=== PATIENT | female | born 1970 | race Two or more races ===

== ENCOUNTER 2023-06-19 15:17 | Emergency (ER) | payer MEDICAID ==
[~2023-06-19] VITALS: Ht 160 cm; Wt 66.5 kg
[2023-06-19 16:13] LABS: Basophils # (auto) 0 10 ^3/uL (0-0.2); Basophils % (auto) 0.3 % (0.0-2.0); Eosinophils # (auto) 0 10 ^3/uL (0-0.8); Eosinophils % (auto) 0.1 % (0.0-7.0); Hematocrit 40.6 % (36.0-46.0); Hemoglobin 13.5 g/dL (12.2-16.2); Lymphocytes # (auto) 1.9 10 ^3/uL (0.4-5.4); Lymphocytes % (auto) 18.2 % (10.0-50.0); Mean Corpuscular Hemoglobin 31.7 pg (28.0-32.0); Mean Corpuscular Hgb Conc. 33.3 g/dL (32.0-36.0); Mean Corpuscular Volume 95.1 fL (80.0-100.0); Monocytes # (auto) 0.6 10 ^3/uL (0-1.3); Monocytes % (auto) 5.7 % (0.0-12.0); Neutrophils % (auto) 75.7 % (37.0-80.0); Red Blood Cells 4.27 10^6/uL (4.0-5.20); Red Cell Distribution Width 13.2 % (11.8-14.3); White Blood Cell 10.5 10^3/uL (4.4-10.8)
[2023-06-19 16:39] LABS: Alanine Aminotransferase 23 U/L (7-40); Albumin 4.9 g/dL (3.2-4.8); Alkaline Phosphatase 135 U/L (46-116); Anion Gap 7 (5-15); Aspartate Aminotransferase 22 U/L (13-40); BUN/Creatinine Ratio 17.1 (10.0-20.0); Bilirubin, Total 0.6 mg/dL (0.2-1.0); Blood Urea Nitrogen 13 mg/dL (9-23); Calcium 10.5 mg/dL (8.7-10.4); Carbon Dioxide 25 mmol/L (20-30); Chloride 104 mmol/L (98-107); Glucose 111 mg/dL (74-106); Sodium 136 mmol/L (136-145)
[2023-06-19 16:40] LABS: Total Protein 7.4 g/dL (5.7-8.2)
[2023-06-19 16:46] LABS: Urine Bacteria NONE SEEN /hpf (None Seen); Urine Blood Negative /uL (Negative); Urine Clarity Clear (Clear); Urine Color Yellow (Yellow); Urine Protein, UAD Negative (Negative); Urine Specific Gravity 1.019 (1.001-1.035); Urine Urobilinogen Normal (Negative); Urine WBC 2 /hpf (0 - 5); Urine pH 5.5 (5.0-8.0)
[2023-06-19] MEDS ORDERED: HYDROcodone-ACET 5/325MG TAB PO ONE (21:30)
[2023-06-19] MEDS ORDERED: ONDANSETRON ODT 4 MG TAB PO ONE (21:30)
[2023-06-19] MEDS ORDERED: IBUP1TAB5 PO (21:40)
[2023-06-19] MEDS ORDERED: ZOFR4T PO (21:40)
[2023-06-19 21:57] VITALS: BP 119/56; PULSE 71; RESP 14; TEMP 98.3; O2SAT 97
== END 2023-06-19 21:57 | disposition home or self-care (01) ==
LOC: ER 15:17
DX: N93.9 Abnormal uterine and vaginal bleeding, unspecified (principal); R10.2 Pelvic and perineal pain; R10.31 Right lower quadrant pain; E78.5 Hyperlipidemia, unspecified
CPT/HCPCS: 36415; 74176; 76830; 76856; 80053; 81001; 85025

== ENCOUNTER 2023-12-24 12:10 | Emergency (ER) | payer MEDICAID ==
[~2023-12-24] VITALS: Ht 160 cm; Wt 64.2 kg
[~2023-12-24 12:10] MED LIST: IBUP1TAB5 PO; ZOFR4T PO
[2023-12-24 12:29] VITALS: BP 126/66; PULSE 93; RESP 18; TEMP 98; O2SAT 94
[2023-12-24] MEDS ORDERED: PRED20TA2 PO (13:58)
[2023-12-24] MEDS ORDERED: DOXY1CAP57 PO (13:58)
[2023-12-24] MEDS ORDERED: ALBUAER3 IN (13:58)
== END 2023-12-24 13:58 | disposition home or self-care (01) ==
LOC: ER 12:10
DX: J01.90 Acute sinusitis, unspecified (principal); H66.93 Otitis media, unspecified, bilateral; J20.9 Acute bronchitis, unspecified; E78.5 Hyperlipidemia, unspecified; Z79.899 Other long term (current) drug therapy

== ENCOUNTER 2024-03-16 11:03 | Emergency (ER) | payer MEDICAID ==
[~2024-03-16] VITALS: Ht 157.5 cm; Wt 68.5 kg
[~2024-03-16 11:03] MED LIST changes: +ALBUAER3 IN; +DOXY1CAP57 PO; +PRED20TA2 PO
[2024-03-16] MEDS: KETOROLAC TROMETH 60MG/2ML VIAL IM ONE (12:23)
[2024-03-16] MEDS ORDERED: IBUP-1454 PO (12:33)
[2024-03-16] MEDS ORDERED: PRED20TA2 PO (12:33)
[2024-03-16] MEDS ORDERED: AMOX875T4 PO (12:33)
[2024-03-16 12:34] VITALS: BP 126/67; PULSE 68; RESP 16; TEMP 98.4; O2SAT 100
== END 2024-03-16 12:41 | disposition home or self-care (01) ==
LOC: ER 11:03
DX: S39.012A Strain of muscle, fascia and tendon of lower back, initial encounter (principal); J01.00 Acute maxillary sinusitis, unspecified; H66.93 Otitis media, unspecified, bilateral; E78.5 Hyperlipidemia, unspecified; Z79.899 Other long term (current) drug therapy; X58.XXXA Exposure to other specified factors, initial encounter; Y93.89 Activity, other specified; Y92.89 Other specified places as the place of occurrence of the external cause; Y99.8 Other external cause status
CPT/HCPCS: 96372; 99283; J1885

== ENCOUNTER 2024-12-29 13:19 | Emergency (ER) | payer MEDICAID ==
[~2024-12-29] VITALS: Ht 157.5 cm; Wt 68.1 kg
[~2024-12-29 13:19] MED LIST changes: +AMOX875T4 PO; +IBUP-1454 PO
[2024-12-29 13:42] VITALS: TEMP 98.6
[2024-12-29 14:18] VITALS: BP 128/70; PULSE 63; RESP 16; O2SAT 98
[2024-12-29 14:19] LABS: Urine Bacteria FEW /hpf (None Seen); Urine Blood Negative /uL (Negative); Urine Clarity Hazy (Clear); Urine Color Yellow (Yellow); Urine Protein, UAD Negative (Negative); Urine Specific Gravity 1.022 (1.001-1.035); Urine Squamous Epithelial Cell MOD /hpf (<5); Urine Urobilinogen Normal (Negative); Urine WBC 1 /HPF (0-5)
[2024-12-29 14:22] LABS: Basophils # (auto) 0 10 ^3/uL (0-0.2); Basophils % (auto) 0.6 % (0.0-2.0); Eosinophils # (auto) 0.1 10 ^3/uL (0-0.8); Eosinophils % (auto) 0.8 % (0.0-7.0); Hematocrit 43.2 % (36.0-46.0); Lymphocytes # (auto) 2.1 10 ^3/uL (0.4-5.4); Lymphocytes % (auto) 24.8 % (10.0-50.0); Mean Corpuscular Hemoglobin 32.9 pg (28.0-32.0); Mean Corpuscular Hgb Conc. 34.8 g/dL (32.0-36.0); Mean Corpuscular Volume 94.6 fL (80.0-100.0); Monocytes # (auto) 0.6 10 ^3/uL (0-1.3); Neutrophils # (auto) 5.6 10 ^3/uL (1.6-8.6); Neutrophils % (auto) 66.8 % (37.0-80.0); Platelet Count (auto) 244 10^3/uL (140-450); Red Blood Cells 4.57 10^6/uL (4.0-5.20); Red Cell Distribution Width 12.9 % (11.8-14.3); White Blood Cell 8.3 10^3/uL (4.4-10.8)
[2024-12-29] MEDS: DONNATAL 5ml ORAL Elix (BELLADONNA ALK-PHENOBARB) PO ONE (14:25)
[2024-12-29] MEDS: LIDOCAINE VISCOUS 2% 15ML UD PO ONE (14:25)
[2024-12-29] MEDS: ONDANSETRON ODT 4 MG TAB PO ONE (14:25)
[2024-12-29] MEDS: MAALOX PLUS or MAALOX 30 ML PO ONE (14:25)
--- NOTE | 2024-12-29 14:25 | ED.PDOC ---
GI ASSESSMENT HPI Comments 54-year-old female presents here with abdominal pain x1 day. She points to the epigastric region as the area of pain and states the pain goes to her back. She states it feels like a burning pain. No history of similar pain in the past. She reports positive vomiting. No diarrhea. Denies any recent cough cold runny nose fever or chills. Patient has not taken any medication for this today. No history of similar type of pain in the past. Chief Complaint: Abdominal Pain Time Seen by MD: 14:00 Primary Care Provider: AMINAH Martin Notes: Medications, Allergies Allergies: Coded Allergies: NO KNOWN ALLERGIES (Unverified , 09/06/14) Home Meds Active Scripts Ibuprofen (Ibuprofen) 600 Mg Tab, 1 TAB PO TID, #30 TAB Prov:EBER SELLERS 03/16/24 Prednisone (Prednisone) 20 Mg Tab, 60 MG PO DAILY, #15 TAB Prov:EBER SELLERS 03/16/24 Amoxicillin & Pot Clavulanate (Amoxicillin/Potassium Cla) 875 Mg Tab, 1 TAB PO BID, #20 TAB Prov:EBER SELLERS 03/16/24 Prednisone (Prednisone) 20 Mg Tab, 60 MG PO DAILY for 5 Days, #15 TAB Prov:KOFFI GAVIRIA 12/24/23 Albuterol Sulfate (VENTOLIN MDI) 90 Mcg Ih, 90 MCG IN Q4HPRN PRN, #1 INH Prov:KOFFI GAVIRIA 12/24/23 Doxycycline Monohydrate (Doxycycline Monohydrate) 100 Mg Cap, 1 CAP PO BID for 7 Days, #14 CAP Prov:KOFFI GAVIRIA 12/24/23 Ondansetron Odt 4MG Tab (ZOFRAN PO) 4 Mg Tb, 1 TAB PO Q8HR, #10 TAB ODT TAB-DISSOLVE IN MOUTH, THEN SWALLOW as needed for nausea vomiting Prov:AARON TORRES Q FIELD MARKETER 06/19/23 Ibuprofen Micronized (Ibuprofen) 600 Mg Tab, 1 TAB PO Q8HR, #20 TAB as needed for pain Prov:LEVI TORRESA Q FIELD MARKETER 06/19/23 Mode of Arrival: Ambulatory Timing: Days Duration: Since onset Prehospital treatment: None Quality: Sharp Severity: Moderate Recent: None Recent Hx of: None Pain Location: Epigastric Associated sign and symptoms: Nausea, Vomiting, Abdominal Pain Past Medical History PAST MEDICAL HISTORY: High Lipids Surgical History: Denies all surgeries GRANITE WORKER History: No Pertinent GRANITE WORKER History Family History Family History: Reviewed,noncontributory to illness Social History Smoker: Non-Smoker Alcohol: Denies ETOH Use Drugs: Denies Drug Use Lives In: Home Constitutional: denies: chills, diaphoresis, fatigue, fever, malaise, sweats, weakness, others EENTM: denies: blurred vision, double vision, ear bleeding, ear discharge, ear drainage, ear pain, ear ringing, eye pain, eye redness, hearing loss, mouth pain, mouth swelling, nasal discharge, nose bleeding, nose congestion, nose pain, photophobia, tearing, throat pain, throat swelling, voice changes, others Respiratory: denies: cough, hemoptysis, orthopnea, SOB at rest, shortness of breath, SOB with excertion, stridor, wheezing, others Cardiovascular: denies: chest pain, dizzy spells, diaphoresis, Dyspnea on exertion, edema, irregular heart beat, left arm pain, lightheadedness, palpitations, PND, syncope, others Gastrointestinal: reports: abdominal pain, nausea, vomiting; denies: abdomen distended, blood streaked bowels, constipated, diarrhea, dysphagia, difficulty swallowing, hematemesis, melena, poor appetite, poor fluid intake, rectal bleeding, rectal pain, others Genitourinary: denies: abnormal vagina bleeding, burning, dyspareunia, dysuria, flank pain, frequency, hematuria, incontinence, pain, , vagina discharge, urgency, others Neurological: denies: dizziness, fainting, headache, left sided numbness, left sided weakness, numbness, paresthesia, pre-existing deficit, right sided numbness, right sided weakness, seizure, speech problems, tingling, tremors, weakness, others Musculoskeletal: denies: back pain, gout, joint pain, joint swelling, muscle pain, muscle stiffness, neck pain, others Integumetry: denies: bruises, change in color, change in hair/nails, dryness, laceration, lesions, lumps, rash, wounds, others Allergic/Immunocompromised: denies: Difficulty Healing, Frequent Infections, Hives, Itching, others Hematologic/Lymphatic: denies: anemia, blood clots, easy bleeding, easy bruising, swollen glands, others Endocrine: denies: excessive hunger, excessive sweating, excessive thirst, excessive urination, flushing, intolerance to cold, intolerance to heat, unexplained weight gain, unexplained weight loss, others Psychiatric: denies: anxiety, bipolar disorder, depression, hopeless, panic disorder, schizophrenia, sleepless, suicidal, others All Other Systems: Reviewed and Negative Physical Exam General Appearance: No Apparent Distress, Normal HEENT: Normal ENT Inspection, Pharynx Normal, TMs Normal Neck: Full Range of Motion, Non-Tender, Normal, Normal Inspection Respiratory: Chest Non-Tender, Lungs Clear, No Accessory Muscle Use, No Respiratory Distress, Normal Breath Sounds Cardiovascular: No Edema, No JVD, No Murmur, No Gallop, Normal Peripheral Pulses, Regular Rate/Rhythm Breast Exam: Deferred Gastrointestinal: Epigastric (tenderness), No Organomegaly, No Pulsatile Mass, Normal Bowel Sounds, Tenderness (epigastric) Genitalia: Deferred Pelvic: Deferred Rectal: Deferred Extremities: No calf tenderness, Normal capillary refill, Normal inspection, Normal range of motion, Non-tender, No pedal edema Musculoskeletal : Apperance: Normal Neurologic: Alert, medical receptionist medical assistant II-XII nml as Tested, No Motor Deficits, Normal Affect, Normal Mood, No Sensory Deficits Cerebellar Function: Normal Reflexes: Normal Skin: Dry, Normal Color, Warm Lymphatic: No Adenopathy Was a procedure done? Was a procedure done?: No GI differential Dx Differential Diagnosis: Bowel Obstruction, Cholangitis, Cholecystitis, Constipation, Esophagitis, Gastritis/PUD, Gastroenteritis, UTI, Dehydration, Viral X-Ray, Labs, Meds, VS Vital Signs Date Time Temp Pulse Resp B/P (MAP) Pulse Ox O2 Delivery O2 Flow Rate FiO2 12/29/24 14:18 63 16 128/70 (89) 98 12/29/24 14:18 63 16 98 Room Air* 0 21 12/29/24 13:42 Room Air 0 12/29/24 13:42 98.6 64 16 128/69 (88) 98 98.6 Lab Test 12/29/24 14:14 12/29/24 13:30 Range/Units White Blood Count 8.3 4.4-10.8 10^3/uL Red Blood Count 4.57 4.0-5.20 10^6/uL Hemoglobin 15.0 12.2-16.2 g/dL Hematocrit 43.2 36.0-46.0 % Mean Corpuscular Volume 94.6 80.0-100.0 fL Mean Corpuscular Hemoglobin 32.9 H 28.0-32.0 pg Mean Corpuscular Hemoglobin Concent 34.8 32.0-36.0 g/dL Red Cell Distribution Width 12.9 11.8-14.3 % Platelet Count 244 140-450 10^3/uL Mean Platelet Volume 7.4 6.9-10.8 fL Neutrophils (%) (Auto) 66.8 37.0-80.0 % Lymphocytes (%) (Auto) 24.8 10.0-50.0 % Monocytes (%) (Auto) 7.0 0.0-12.0 % Eosinophils (%) (Auto) 0.8 0.0-7.0 % Basophils (%) (Auto) 0.6 0.0-2.0 % Neutrophils # (Auto) 5.6 1.6-8.6 10 ^3/uL Lymphocytes # (Auto) 2.1 0.4-5.4 10 ^3/uL Monocytes # (Auto) 0.6 0-1.3 10 ^3/uL Eosinophils # (Auto) 0.1 0-0.8 10 ^3/uL Basophils # (Auto) 0 0-0.2 10 ^3/uL Nucleated Red Blood Cells 0.0 % Sodium Level 139 136-145 mmol/L Potassium Level 4.1 3.5-5.1 mmol/L Chloride Level 105 98-107 mmol/L Carbon Dioxide Level 26 20-31 mmol/L Anion Gap 8 5-15 Blood Urea Nitrogen 13 9-23 mg/dL Creatinine 0.91 0.550-1.02 mg/dL Glomerular Filtration Rate Calc 76 >90 mL/min BUN/Creatinine Ratio 14.3 10.0-20.0 Serum Glucose 82 74-106 mg/dL Calcium Level 9.8 8.7-10.4 mg/dL Total Bilirubin 0.7 0.2-1.0 mg/dL Aspartate Amino Transferase (AST) 17 13-40 U/L Alanine Aminotransferase (ALT) 21 7-40 U/L Alkaline Phosphatase 105 46-116 U/L Total Protein 7.1 5.7-8.2 g/dL Albumin 4.8 3.2-4.8 g/dL Lipase 38 12-53 U/L Urine Color Yellow Yellow Urine Clarity Hazy H Clear Urine pH 6.0 5.0-9.0 Urine Specific [place] 1.022 1.001-1.035 Urine Protein Negative Negative Urine Ketones Negative Negative Urine Blood Negative Negative /uL Urine Nitrite Negative Negative Urine Bilirubin Negative Negative Urine Urobilinogen Normal Negative mg/dL Urine Leukocyte Esterase Negative Negative /uL Urine RBC 1 0 - 4 /hpf Urine Microscopic WBC 1 0-5 /HPF Urine Squamous Epithelial Cells Mod <5 /hpf Urine Bacteria Few H None Seen /hpf Urine Glucose Normal Normal mg/dL Current Medications Medications (Trade) Dose Ordered Sig/Valorie Route Start Time Stop Time Status Last Admin Ondansetron HCl (Zofran Po) 4 mg ONCE ONCE PO 12/29/24 14:30 12/29/24 14:31 DC 12/29/24 14:25 Al Hydrox/Mg Hydrox/Simethicone (Maalox Plus) 30 ml ONCE ONCE PO 12/29/24 14:30 12/29/24 14:31 DC 12/29/24 14:25 Belladonna Alkaloids/ Phenobarbital ( Elixir) 5 ml ONCE ONCE PO 12/29/24 14:30 12/29/24 14:31 DC 12/29/24 14:25 Lidocaine HCl (Xylocaine 2% Viscous) 15 ml ONCE ONCE PO 12/29/24 14:30 12/29/24 14:31 DC 12/29/24 14:25 Ketorolac Tromethamine (Toradol Injection) 30 mg ONCE ONCE IM 12/29/24 16:15 12/29/24 16:16 DC 12/29/24 16:20 [place] [address] Ph: [phone] DIAGNOSTIC IMAGING Diagnostic Imaging Report : [id number] Signed PATIENT: JOSE F TIWARI ERMELINDAACCT: [id number] UNIT: [id number] : 1970 LOC: ER ROOM / BED: / AGE / SEX: 54 / F ADM STATUS: REG ER SERVICE [id number] ORDERING PHYSICIAN: SAVANNA JOHNSON MD PROCEDURE(s): GBUS - GALLBLADDER REASON: ro tim ORDER NUMBER(s): [id number], ACCESSION NUMBER(s): [id number] Technique: Real-time ultrasound imaging of the abdomen was performed with grayscale and color Doppler. Indication: ro tim Comparison: None Findings: Liver measures 15 cm. It is increased in echogenicity and echotexture without focal mass. Portal vein is normal in caliber and demonstrates normal hepatopetal flow. Gallbladder demonstrates cholelithiasis. There is no pericholecystic fluid. The wall thickness is normal. The common bile duct measures 6 mm. No intrahepatic biliary ductal dilatation. The right kidney measures 10.6cm. No hydronephrosis or sonographic evidence of nephrolithiasis. The visualized portion of the pancreas is unremarkable. The visualized portion of the IVC is unremarkable. Impression: 1. Cholelithiasis 2. Echogenic liver which can be seen with hepatic steatosis, cirrhosis. ATED BY: ELMIRA GERMAN MD DICTATED DATE/TIME: 12/29/24 152 SIGNED BY: ELMIRA GERMAN MD SIGNED DATE/TIME: 12/29/24 152 CC: 54-year-old female presents here with abdominal epigastric pain. Considered possible pancreatitis, cholecystitis, gastritis. I have given her GI cocktail without improvement. Ultrasound has been done which does demonstrate cholelith iasis without cholecystitis. Also demonstrates echogenic liver which can be seen with hepatic steatosis, cirrhosis. At this time I have given her Toradol IM and she is clinically feeling much better. Using a precision mechanical instrument maker I did advise her to avoid fatty foods. Advised her that if she continues to have gallbladder pain despite avoiding fatty foods, she needs to visit her PCP for outpatient surgical consult for removal. Patient agreeable. At this time patient's abdomen is soft and nontender. Low suspicion for emergent pathology. Advised to return if symptoms worsen or persist. Blood work has been done including a CBC CMP and a lipase all of which are unremarkable. Time of 1ST Reevaluation: 14:30 Reevaluation 1ST: Unchanged Time of 2ND Reevaluation: 16:34 Reevaluation 2ND: Improved Patient Education/Counseling: Diagnosis, Treatment, Prognosis, Need For Follow Up Family Education/Counseling: No Family Present Departure 1 Departure Time of Disposition: 15:43 Impression: Primary Impression: Cholelithiasis Qualified Codes: K80.20 - Calculus of gallbladder without cholecystitis without obstruction Disposition: HOME / SELF CARE / HOMELESS Condition: Stable Additional Instructions: It is important to avoid fatty foods as this will increase your pain. If you continue to have pain you can take ibuprofen 600 mg by mouth (ibuprofen comes in 200 mg tablets you can take 3 of these at a time). Additionally if you continue to have pain please see your primary care physician and they can refer you to outpatient surgeon. Please return back to the ER if symptoms worsen or persist. [place] [address] Ph: [phone] DIAGNOSTIC IMAGING Diagnostic Imaging Report : [id number] Signed PATIENT: JOSE F TIWARI ACCT: [id number] UNIT: [id number] : 1970 LOC: ER ROOM / BED: / AGE / SEX: 54 / F ADM STATUS: REG ER SERVICE [id number] ORDERING PHYSICIAN: SAVANNA JOHNSON MD PROCEDURE(s): GBUS - GALLBLADDER REASON: ro tim ORDER NUMBER(s): [id number], ACCESSION NUMBER(s): [id number] Technique: Real-time ultrasound imaging of the abdomen was performed with grayscale and color Doppler. Indication: ro tim Comparison: None Findings: Liver measures 15 cm. It is increased in echogenicity and echotexture without focal mass. Portal vein is normal in caliber and demonstrates normal hepatopetal flow. Gallbladder demonstrates cholelithiasis. There is no pericholecystic fluid. The wall thickness is normal. The common bile duct measures 6 mm. No intrahepatic biliary ductal dilatation. The right kidney measures 10.6cm. No hydronephrosis or sonographic evidence of nephrolithiasis. The visualized portion of the pancreas is unremarkable. The visualized portion of the IVC is unremarkable. Impression: 1. Cholelithiasis 2. Echogenic liver which can be seen with hepatic steatosis, cirrhosis. ATED BY: ELMIRA GERMAN MD DICTATED DATE/TIME: 12/29/24 1521 SIGNED BY: ELMIRA GERMAN MD SIGNED DATE/TIME: 12/29/24 1521 CC: Discharged With: Self Critical Care Note Critical Care Time?: No Stability Stability form required: No Heart Score Heart Score: Heart Score Response (Comments) Value History N/A 0 EKG N/A 0 Age N/A 0 Risk Factors N/A 0 Troponin N/A 0 Total 0 I personally scribed for SAVANNA JOHNSON MD ([email or web address]) on 12/29/24 at 14:25. Electronically submitted by Harini Castaneda ([email or web address]). I personally scribed for SAVANNA JOHNSON MD ([email or web address]) on 12/29/24 at 15:45. Electronically submitted by Harnii Castaneda ([email or web address]). SAVANNA JOHNSON MD December 29, 2024 14:25
[2024-12-29 14:39] LABS: Alanine Aminotransferase 21 U/L (7-40); Albumin 4.8 g/dL (3.2-4.8); Alkaline Phosphatase 105 U/L (46-116); Anion Gap 8 (5-15); Aspartate Aminotransferase 17 U/L (13-40); BUN/Creatinine Ratio 14.3 (10.0-20.0); Blood Urea Nitrogen 13 mg/dL (9-23); Calcium 9.8 mg/dL (8.7-10.4); Carbon Dioxide 26 mmol/L (20-31); Chloride 105 mmol/L (98-107); Glucose 82 mg/dL (74-106); Lipase 38 U/L (12-53); Potassium 4.1 mmol/L (3.5-5.1); Sodium 139 mmol/L (136-145); Total Protein 7.1 g/dL (5.7-8.2)
[2024-12-29 14:40] LABS: Bilirubin, Total 0.7 mg/dL (0.2-1.0)
--- NOTE | 2024-12-29 15:24 | DVH ---
Technique: Real-time ultrasound imaging of the abdomen was performed with grayscale and color Doppler . Indication: ro tim Comparison: None Findings: Liver measures 15 cm. It is increased in echogenicity and echotexture without focal mass. Portal vei n is normal in caliber and demonstrates normal hepatopetal flow. Gallbladder demonstrates cholelithiasis. There is no pericholecystic fluid. The wall thickness is nor mal. The common bile duct measures 6 mm. No intrahepatic biliary ductal dilatation. The right kidney measures 10.6cm. No hydronephrosis or sonographic evidence of nephrolithiasis. The visualized portion of the pancreas is unremarkable. The visualized portion of the IVC is unremarkable. Impression: 1. Cholelithiasis 2. Echogenic liver which can be seen with hepatic steatosis, cirrhosis.
[2024-12-29] MEDS: KETOROLAC TROMETH 30 MG/ML 1ML VIAL IM ONE (16:20)
== END 2024-12-29 16:48 | disposition home or self-care (01) ==
LOC: ER 13:24
DX: K80.20 Calculus of gallbladder without cholecystitis without obstruction (principal); E78.5 Hyperlipidemia, unspecified; Z79.899 Other long term (current) drug therapy
CPT/HCPCS: 36415; 76705; 80053; 81001; 83690; 85025; 96372; 99285; J1885; Q0162

== ENCOUNTER 2025-03-02 12:47 | Emergency (ER) | payer MEDICAID ==
[~2025-03-02] VITALS: Ht 160 cm; Wt 68.3 kg
--- NOTE | 2025-03-02 13:51 | ED.PDOC ---
History of Present Illness HPI Comments 54 year old female presents to the ED with a chief complaint of pelvic pain onset 3 days. Patient states she has been experiencing pelvic pain, described as a pressure sensation for the past 3 days. She is scheduled for umbilical hernia repair on 03/20/25. PMHx HLD. Denies nausea, vomiting, fever, chills, headache, dysuria, hematuria, vaginal discharge, chest pain, dizziness. No other symptoms or modifying factors present at this time. Time Seen by MD: 13:35 Primary Care Provider: AMINAH Reviewed Notes: Medications, Allergies Allergies: Coded Allergies: NO KNOWN ALLERGIES (Unverified , 09/06/14) Home Meds Active Scripts Ibuprofen (Ibuprofen) 600 Mg Tab, 1 TAB PO TID, #30 TAB Prov:EBER SELLERS 03/16/24 Prednisone (Prednisone) 20 Mg Tab, 60 MG PO DAILY, #15 TAB Prov:EBER SELLERS 03/16/24 Amoxicillin & Pot Clavulanate (Amoxicillin/Potassium Cla) 875 Mg Tab, 1 TAB PO BID, #20 TAB Prov:EBER SELLERS 03/16/24 Prednisone (Prednisone) 20 Mg Tab, 60 MG PO DAILY for 5 Days, #15 TAB Prov:KOFFI GAVIRIA 12/24/23 Albuterol Sulfate (VENTOLIN MDI) 90 Mcg Ih, 90 MCG IN Q4HPRN PRN, #1 INH Prov:KOFFI GAVIRIA 12/24/23 Doxycycline Monohydrate (Doxycycline Monohydrate) 100 Mg Cap, 1 CAP PO BID for 7 Days, #14 CAP Prov:KOFFI GAVIRIA 12/24/23 Ondansetron Odt 4MG Tab (ZOFRAN PO) 4 Mg Tb, 1 TAB PO Q8HR, #10 TAB ODT TAB-DISSOLVE IN MOUTH, THEN SWALLOW as needed for nausea vomiting Prov:AARON TORRES Q WESTERN PHILOSOPHY PROFESSOR 06/19/23 Ibuprofen Micronized (Ibuprofen) 600 Mg Tab, 1 TAB PO Q8HR, #20 TAB as needed for pain Prov:LEVI TORRESA Q WESTERN PHILOSOPHY PROFESSOR 06/19/23 Information Source: Patient Mode of Arrival: Ambulatory Severity: Moderate Timing: Days Duration: Since onset Prehospital treatment: None Past Medical History PAST MEDICAL HISTORY: High Lipids Surgical History: COMPLETIONS MANAGER History: No Pertinent COMPLETIONS MANAGER History Family History Family History: Reviewed,noncontributory to illness Social History Smoker: Non-Smoker Alcohol: Denies ETOH Use Drugs: Denies Drug Use Lives In: Home Genitourinary: reports: others (pelvic pressire) Physical Exam General Appearance: Moderate Distress, Normal HEENT: Normal ENT Inspection, Pharynx Normal, TMs Normal Neck: Full Range of Motion, Non-Tender, Normal, Normal Inspection Respiratory: Chest Non-Tender, Lungs Clear, No Accessory Muscle Use, No Respiratory Distress, Normal Breath Sounds Cardiovascular: No Edema, No JVD, No Murmur, No Gallop, Normal Peripheral Pulses, Regular Rate/Rhythm Breast Exam: Deferred Gastrointestinal: No Organomegaly, Non Tender, No Pulsatile Mass, Normal Bowel Sounds, Soft Genitalia: Deferred Pelvic: Deferred Rectal: Deferred Extremities: No calf tenderness, Normal capillary refill, Normal inspection, Normal range of motion, Non-tender, No pedal edema Musculoskeletal : Apperance: Normal Neurologic: Alert, remote sensing scientist II-XII nml as Tested, No Motor Deficits, Normal Affect, Normal Mood, No Sensory Deficits Cerebellar Function: Normal Reflexes: Normal Skin: Dry, Normal Color, Warm Peripheral Pulses: 3+ Radial (R), 3+ Radial (L) Lymphatic: No Adenopathy Was a procedure done? Was a procedure done?: No Differential Dx Considerations may include: Umbilical hernia X-Ray, Labs, Meds, VS Vital Signs Date Time Temp Pulse Resp B/P (MAP) Pulse Ox O2 Delivery O2 Flow Rate FiO2 03/02/25 13:15 98.3 70 16 107/68 (81) 97 98.3 Lab Test 03/02/25 13:20 Range/Units Urine Color Yellow Yellow Urine Clarity Clear Clear Urine pH 7.0 5.0-9.0 Urine Specific [place] 1.025 1.001-1.035 Urine Protein Negative Negative Urine Ketones Negative Negative Urine Blood Negative Negative /uL Urine Nitrite Negative Negative Urine Bilirubin Negative Negative Urine Urobilinogen Normal Negative mg/dL Urine Leukocyte Esterase Negative Negative /uL Urine RBC 2 0 - 4 /hpf Urine Microscopic WBC 1 0-5 /HPF Urine Squamous Epithelial Cells Mod <5 /hpf Urine Bacteria None seen None Seen /hpf Urine Mucus Few None Seen Urine Glucose Normal Normal mg/dL Patient alert. Came in because of suprapubic discomfort. Urinalysis within normal limits. Vitals stable. CT scan of the abdomen does not show any acute process. On examination abdomen is soft nontender. Ambulating. No sign of any liver pathology. Clinical examination pristine. Explained to the patient that she does have umbilical hernia but no acute process. Was told to follow up with her primary care physician. Was told to come back if there is any problem. Time of 1ST Reevaluation: 14:05 Reevaluation 1ST: Improved Patient Education/Counseling: Diagnosis, Treatment, Prognosis Family Education/Counseling: No Family Present SEPSIS Sepsis Screen Physician Orders Ct Ab Pel Wo Con-No Oral Or Iv (03/02/25 14:55) Vital Signs Date Time Temp Pulse Resp B/P (MAP) Pulse Ox O2 Delivery O2 Flow Rate FiO2 03/02/25 13:15 98.3 70 16 107/68 (81) 97 98.3 Departure 1 Departure Time of Disposition: 17:11 Impression: Primary Impression: Umbilical hernia Qualified Codes: K42.9 - Umbilical hernia without obstruction or gangrene Additional Impression: Cholelithiasis Qualified Codes: K80.20 - Calculus of gallbladder without cholecystitis without obstruction Disposition: 01 HOME / SELF CARE / HOMELESS Condition: Good Discharged With: Self Critical Care Note Critical Care Time?: No Stability Stability form required: No Heart Score Heart Score: Heart Score Response (Comments) Value History N/A 0 EKG N/A 0 Age N/A 0 Risk Factors N/A 0 Troponin N/A 0 Total 0 I personally scribed for RADHA TIMMONS MD ([email or web address]) on 03/02/25 at 13:51. Electronically submitted by Harini Castaneda ([email or web address]). RADHA TIMMONS MD Mar 02, 2025 13:51
[2025-03-02 14:08] LABS: Urine Protein, UAD Negative (Negative)
--- NOTE | 2025-03-02 16:25 | DVH ---
Exam: CT CT AB PEL WO CON-NO ORAL OR IV History: hernia Comparison Study: CT CT AB PEL WO CON-NO ORAL OR IV on DOS: 06/19/23 ; gallbladder ultrasound 12/30/19 25 Technique: Multidetector spiral CT of the abdomen was performed from lung bases to pubic symphysis. Imaging was performed without IV contrast. Axial, coronal and sagittal multiplanar reformats were ob tained from the axial data set by the technologist. Radiation Dose : 1. Abdomen/Pelvis: CTDIvol 7 mGy, DLP 335 mGy*cm. Findings: Evaluation of solid organs is limited due to lack of intravenous contrast use. Lung Bases: No acute or significant lung base finding. Normal heart size. No pleural or pericardial effusion. Liver: The liver is normal in size. No focal lesions. Gallbladder and Biliary Tree: Cholelithiasis without secondary findings of cholecystitis or biliary obstruction. Spleen: Unremarkable Pancreas: The pancreas is grossly normal in appearance. Adrenal Glands: Unremarkable Kidneys: Kidneys are grossly normal without calculi or hydronephrosis. Bladder: Grossly unremarkable for degree of distention. Bowel: The stomach is grossly normal in appearance. Small bowel and colon are normal in caliber and d istribution. Possible duodenal diverticulum that projects medially from the 2nd portion of the duoden um. Slightly hyperdense intraluminal contents in the appendix. The appendix is normal in size with s ome interspersed gas and no signs of appendicitis. Ascites: Absent Lymphadenopathy: No mesenteric, retroperitoneal or periportal lymphadenopathy. Abdominal Wall and Mesentery: Tiny fat containing umbilical hernia. Vasculature: The visualized abdominal aorta is normal in size and caliber. Evaluation of abdominal a nd pelvic vessels is limited due to lack of intravenous contrast. Pelvic Organs: Uterus is unremarkable. Small radiodense foci along the bilateral adnexa could repres ent phleboliths or postsurgical change. Musculoskeletal: No acute osseous abnormalities. There is a fat density lesion with a thin peripheral rim of calcification along the left gluteal musculature that measures 3.1 x 1.3 cm which is stable c ompared to 06/19/2023. Grade 1 anterolisthesis L5/S1 is similar from prior. IMPRESSION: No acute abdominal or pelvic findings. Cholelithiasis without evidence of cholecystitis. Tiny fat containing umbilical hernia. Possible duodenal diverticulum. Fat-containing structure along the left gluteal musculature is stable from 06/19/2023 and may represe nt fat necrosis. Radiation optimization: All CT scans at this facility use at least one of these dose optimization vi hniques: automated exposure control mA and/or kV adjustment per patient size (includes targeted exam s where dose is matched to clinical indication) or iterative reconstruction.
[2025-03-02 17:29] VITALS: BP 131/67; PULSE 56; RESP 18; TEMP 97.3; O2SAT 99
== END 2025-03-02 17:38 | disposition home or self-care (01) ==
LOC: ER 12:47
DX: K42.9 Umbilical hernia without obstruction or gangrene (principal); K80.20 Calculus of gallbladder without cholecystitis without obstruction; E78.5 Hyperlipidemia, unspecified; Z79.1 Long term (current) use of non-steroidal anti-inflammatories (NSAID); Z79.52 Long term (current) use of systemic steroids; Z79.899 Other long term (current) drug therapy; Z98.890 Other specified postprocedural states
CPT/HCPCS: 74176; 81001

== ENCOUNTER 2025-06-19 11:01 | Emergency (ER) | payer MEDICAID ==
[~2025-06-19] VITALS: Ht 157.5 cm; Wt 68.8 kg
--- NOTE | 2025-06-19 11:26 | ED.PDOC ---
History of Present Illness HPI Comments This is a 54-year-old female who comes in with chief complaint of lower abdominal pain. The patient states that she is also having some back pain. The symptoms started approximately 1-1/2 days ago. Two months ago the patient had similar symptoms and they were somewhat off and on. She has been having vaginal bleeding for approximately one month. She denies any fever or chills. The patient denies any dysuria. She was able to ambulate into the emergency department's without any difficulty. Chief Complaint: Vaginal Bleed Time Seen by MD: 11:04 Primary Care Provider: AMINAH Reviewed Notes: Nurses Notes, Medications, Allergies (No allergies to medications) Allergies: Coded Allergies: NO KNOWN ALLERGIES (Unverified , 09/06/14) Home Meds Active Scripts Ibuprofen (Ibuprofen) 600 Mg Tab, 1 TAB PO TID, #30 TAB Prov:EBER SELLERS 03/16/24 Prednisone (Prednisone) 20 Mg Tab, 60 MG PO DAILY, #15 TAB Prov:EBER SELLERS 03/16/24 Amoxicillin & Pot Clavulanate (Amoxicillin/Potassium Cla) 875 Mg Tab, 1 TAB PO BID, #20 TAB Prov:EBER SELLERS 03/16/24 Prednisone (Prednisone) 20 Mg Tab, 60 MG PO DAILY for 5 Days, #15 TAB Prov:KOFFI GAVIRIA 12/24/23 Albuterol Sulfate (VENTOLIN MDI) 90 Mcg Ih, 90 MCG IN Q4HPRN PRN, #1 INH Prov:KOFFI GAVIRIA 12/24/23 Doxycycline Monohydrate (Doxycycline Monohydrate) 100 Mg Cap, 1 CAP PO BID for 7 Days, #14 CAP Prov:KOFFI GAVIRIA 12/24/23 Ondansetron Odt 4MG Tab (ZOFRAN PO) 4 Mg Tb, 1 TAB PO Q8HR, #10 TAB ODT TAB-DISSOLVE IN MOUTH, THEN SWALLOW as needed for nausea vomiting Prov:AARON TORRES [employer] DIRECT[employer] 06/19/23 Ibuprofen Micronized (Ibuprofen) 600 Mg Tab, 1 TAB PO Q8HR, #20 TAB as needed for pain Prov:AARON TORRES [employer] DIRECT[employer] 06/19/23 Information Source: Patient Mode of Arrival: Ambulatory Severity: Moderate Timing: Days Duration: Since onset Prehospital treatment: None Location: Lower abdominal pain with vaginal bleeding and back pain Past Medical History PAST MEDICAL HISTORY: High Lipids Surgical History: , Hernia Repair [employer] SAL[employer] REPRESENTATIVE History: No Pertinent [employer] SALES REPRESENTATIVE History Family History Family History: Family hx of heart irish Social History Smoker: Non-Smoker Alcohol: Denies ETOH Use Drugs: Denies Drug Use Lives In: Home Constitutional: denies: chills, diaphoresis, fatigue, fever, malaise, sweats, weakness, others EENTM: denies: blurred vision, double vision, ear bleeding, ear discharge, ear drainage, ear pain, ear ringing, eye pain, eye redness, hearing loss, mouth pain, mouth swelling, nasal discharge, nose bleeding, nose congestion, nose pain, photophobia, tearing, throat pain, throat swelling, voice changes, others Respiratory: denies: cough, hemoptysis, orthopnea, SOB at rest, shortness of breath, SOB with excertion, stridor, wheezing, others Cardiovascular: denies: chest pain, dizzy spells, diaphoresis, Dyspnea on exertion, edema, irregular heart beat, left arm pain, lightheadedness, palpitations, PND, syncope, others Gastrointestinal: reports: abdominal pain; denies: abdomen distended, blood streaked bowels, constipated, diarrhea, dysphagia, difficulty swallowing, hematemesis, melena, nausea, poor appetite, poor fluid intake, rectal bleeding, rectal pain, vomiting, others Genitourinary: reports: abnormal vagina bleeding; denies: burning, dyspareunia, dysuria, flank pain, frequency, hematuria, incontinence, pain, , vagina discharge, urgency, others Neurological: reports: headache; denies: dizziness, fainting, left sided numbness, left sided weakness, numbness, paresthesia, pre-existing deficit, right sided numbness, right sided weakness, seizure, speech problems, tingling, tremors, weakness, others Musculoskeletal: denies: back pain, gout, joint pain, joint swelling, muscle pain, muscle stiffness, neck pain, others Integumetry: denies: bruises, change in color, change in hair/nails, dryness, laceration, lesions, lumps, rash, wounds, others Allergic/Immunocompromised: denies: Difficulty Healing, Frequent Infections, Hives, Itching, others Hematologic/Lymphatic: denies: anemia, blood clots, easy bleeding, easy bruising, swollen glands, others Endocrine: denies: excessive hunger, excessive sweating, excessive thirst, excessive urination, flushing, intolerance to cold, intolerance to heat, une xplained weight gain, unexplained weight loss, others Psychiatric: denies: anxiety, bipolar disorder, depression, hopeless, panic disorder, schizophrenia, sleepless, suicidal, others Physical Exam General Appearance: Moderate Distress HEENT: Normal ENT Inspection, Pharynx Normal, TMs Normal Neck: Full Range of Motion, Non-Tender, Normal, Normal Inspection Respiratory: Chest Non-Tender, Lungs Clear, No Accessory Muscle Use, No Respiratory Distress, Normal Breath Sounds Cardiovascular: No Edema, No JVD, No Murmur, No Gallop, Normal Peripheral Pulses, Regular Rate/Rhythm Breast Exam: Deferred Gastrointestinal: No Organomegaly, No Pulsatile Mass, Normal Bowel Sounds, Soft, Suprapubic (That has), Tenderness Genitalia: Deferred Pelvic: Deferred Rectal: Deferred Extremities: No calf tenderness, Normal capillary refill, Normal inspection, Normal range of motion, Non-tender, No pedal edema Musculoskeletal : Apperance: Normal Neurologic: Alert, supervisor microfilm duplicating unit II-XII nml as Tested, No Motor Deficits, Normal Affect, Normal Mood, No Sensory Deficits Cerebellar Function: Normal Reflexes: Normal Skin: Dry, Normal Color, Warm Lymphatic: No Adenopathy Was a procedure done? Was a procedure done?: No Differential Dx Considerations may include: Vaginal bleeding, fibroid tumor, anemia X-Ray, Labs, Meds, VS Vital Signs Date Time Temp Pulse Resp B/P (MAP) Pulse Ox O2 Delivery O2 Flow Rate FiO2 06/19/25 12:08 100 Room Air* 0 21 06/19/25 12:07 98.4 69 17 133/85 (101) 100 98.4 06/19/25 11:03 97.9 86 20 139/91 99 97.9 Lab Test 06/19/25 11:19 Range/Units White Blood Count 8.7 4.4-10.8 10^3/uL Red Blood Count 4.47 4.0-5.20 10^6/uL Hemoglobin 14.7 12.2-16.2 g/dL Hematocrit 42.9 36.0-46.0 % Mean Corpuscular Volume 95.9 80.0-100.0 fL Mean Corpuscular Hemoglobin 33.0 H 28.0-32.0 pg Mean Corpuscular Hemoglobin Concent 34.4 32.0-36.0 g/dL Red Cell Distribution Width 12.8 11.8-14.3 % Platelet Count 263 140-450 10^3/uL Mean Platelet Volume 7.9 6.9-10.8 fL Neutrophils (%) (Auto) 73.1 37.0-80.0 % Lymphocytes (%) (Auto) 19.7 10.0-50.0 % Monocytes (%) (Auto) 5.8 0.0-12.0 % Eosinophils (%) (Auto) 1.0 0.0-7.0 % Basophils (%) (Auto) 0.4 0.0-2.0 % Neutrophils # (Auto) 6.3 1.6-8.6 10 ^3/uL Lymphocytes # (Auto) 1.7 0.4-5.4 10 ^3/uL Monocytes # (Auto) 0.5 0-1.3 10 ^3/uL Eosinophils # (Auto) 0.1 0-0.8 10 ^3/uL Basophils # (Auto) 0 0-0.2 10 ^3/uL Nucleated Red Blood Cells 0.0 % Current Medications Medications (Trade) Dose Ordered Sig/Valorie Route Start Time Stop Time Status Last Admin Tramadol HCl (Ultram) 50 mg ONCE ONCE PO 06/19/25 11:15 06/19/25 11:16 DC 06/19/25 12:12 Ultrasound of the pelvis shows: Impression: Multiple uterine leiomyomas measuring up to 1.5 cm. Right ovarian cystic lesion with peripheral echogenicity measuring 1.1 cm, possibly a involuting corpus luteal cyst. Recommend follow-up ultrasound in 2/6 weeks to ensure resolution. Left ovary nonvisualized. The CBC is within normal limits The patient was given tramadol 60 mg by mouth. At this time, the patient is being discharged with a diagnosis of fibroid tumors The patient was given a prescription of Ultram Images Reviewed?: Images reviewed and evaluated by me Time of 1ST Reevaluation: 11:26 Reevaluation 1ST: Improved Patient Education/Counseling: Diagnosis, Treatment, Prognosis, Need For Follow Up Family Education/Counseling: No Family Present SEPSIS Sepsis Screen Date sepsis recognized/suspect: Jun 19, 2025 Time Sepsis recognized/suspect: 1103 Recent Procedure: No On Antibiotic Therapy: No Respiratory Rate >20: No Heart Rate >90: No Temp<36 C (96.8 F) or >38.3 C: No SBP <90 or MAP <65 mmHG: No New Acute Mental Status Change: No Is the patient on CPAP, BIPAP,: No Physician Orders Urinalysis (06/19/25 11:13) Pelvic (06/19/25 11:13) Transvaginal Us Non Ob (06/19/25 12:05) Vital Signs Date Time Temp Pulse Resp B/P (MAP) Pulse Ox O2 Delivery O2 Flow Rate FiO2 06/19/25 12:08 100 Room Air* 0 21 06/19/25 12:07 98.4 69 17 133/85 (101) 100 98.4 06/19/25 11:03 97.9 86 20 139/91 99 97.9 Laboratory Tests Test 06/19/25 11:19 White Blood Count 8.7 10^3/uL (4.4-10.8) Medications Medications Dose Ordered Sig/Valorie Route Start Time Stop Time Status Last Admin Dose Admin Tramadol HCl 50 mg ONCE ONCE PO 06/19/25 11:15 06/19/25 11:16 DC 06/19/25 12:12 Departure 1 Departure Time of Disposition: 14:49 Impression: Primary Impression: Fibroid tumor Additional Impression: Abdominal pain Qualified Codes: R10.30 - Lower abdominal pain, unspecified Disposition: 01 HOME / SELF CARE / HOMELESS Condition: Fair Discharged With: Self Critical Care Note Critical Care Time?: No Stability Stability form required: No Heart Score Heart Score: Heart Score Response (Comments) Value History N/A 0 EKG N/A 0 Age N/A 0 Risk Factors N/A 0 Troponin N/A 0 Total 0 TONY TRAORE MD Jun 19, 2025 11:26
[2025-06-19 11:39] LABS: Hematocrit 42.9 % (36.0-46.0); Hemoglobin 14.7 g/dL (12.2-16.2); Mean Corpuscular Hemoglobin 33.0 pg (28.0-32.0); Mean Corpuscular Volume 95.9 fL (80.0-100.0); Nucleated Red Blood Cells % 0.0 %
--- NOTE | 2025-06-19 12:21 | DVH ---
Technique: Real-time ultrasound images through the pelvis using a transabdominal transducer. For better evaluation of the ovaries and endometrial stripe, an endovaginal transducer was used. Indication: pain Comparison: US PELVIC on DOS: 06/19/23 Findings: The uterus measures 9.7 cm. The endometrial stripe measures 4 mm. Multiple uterine leiomyomas measuring up to 1.5 cm which are predominantly intramural in location. Right ovary measures 2.6 x 1.5 x 2.4 cm. Normal flow on color doppler images. Right ovarian cystic lesion with peripheral echogenicity measuring 1.1 cm. Left ovary is nonvisualized. There is no significant free fluid in the pelvis. Impression: Multiple uterine leiomyomas measuring up to 1.5 cm. Right ovarian cystic lesion with peripheral echogenicity measuring 1.1 cm, possibly a involuting corpus luteal cyst. Recommend follow-up ultrasound in 2/6 weeks to ensure resolution. Left ovary nonvisualized.
[2025-06-19] MEDS ORDERED: TRAM-626 PO (14:53)
[2025-06-19 15:27] LABS: Urine Protein, UAD Negative (Negative)
[2025-06-19 16:52] VITALS: BP 138/78; PULSE 64; RESP 18; TEMP 98.3; O2SAT 99
== END 2025-06-19 17:15 | disposition home or self-care (01) ==
LOC: ER 11:01
DX: D25.9 Leiomyoma of uterus, unspecified (principal); R10.30 Lower abdominal pain, unspecified; E78.5 Hyperlipidemia, unspecified; Z79.899 Other long term (current) drug therapy; Z98.890 Other specified postprocedural states; Z79.1 Long term (current) use of non-steroidal anti-inflammatories (NSAID); Z79.52 Long term (current) use of systemic steroids
CPT/HCPCS: 36415; 76830; 76856; 81001; 85025